=== PATIENT | male | born 1965 | race Caucasian/White ===

== ENCOUNTER 2020-03-19 00:55 | Inpatient (IN) | payer MEDICAID ==
[~2020-03-19] VITALS: Ht 175.3 cm; Wt 59.0 kg
[2020-03-19] MEDS ORDERED: heparin 25,000 UNIT/250ml bag 250 ML IV SCH (01:21)
[2020-03-19] MEDS ORDERED: heparin 10,000 units/1 ML INJ IV PRN (01:25)
[2020-03-19] MEDS ORDERED: aspirin 81mg tab.chew PO ONE (01:25)
[2020-03-19] MEDS ORDERED: heparin 10,000 units/1 ML INJ IV ONE ×3 (01:25→01:35)
[2020-03-19 01:51] LABS: BASOPHILS % (AUTO) 0.5 % (0-1); EOSINOPHILS # (AUTO) 0.4 X10'3 (0-0.9); EOSINOPHILS % (AUTO) 6.7 % (0-6); LYMPHOCYTES # (AUTO) 1.9 X10'3 (1.1-4.8); LYMPHOCYTES % (AUTO) 30.7 % (21-51); MEAN CORPUSCULAR HEMOGLOBIN 28.9 PG (27.0-31.0); MEAN CORPUSCULAR HGB CONC 33.4 g/dL (33.0-36.5); MEAN CORPUSCULAR VOLUME 86.5 FL (78-98); MONOCYTES # (AUTO) 0.6 X10'3 (0-0.9); MONOCYTES % (AUTO) 9.7 % (2-12); NEUTROPHILS # (AUTO) 3.3 X10'3 (1.8-7.7); NEUTROPHILS % (AUTO) 52.4 % (42-75); PLATELET COUNT 205 X10'3 (140-440); RED BLOOD COUNT 4.51 X10'6 (4.70-6.10); RED CELL DISTRIBUTION WIDTH 17.4 % (11.5-14.5); WHITE BLOOD COUNT 6.3 X10'3 (4.5-11.0)
[2020-03-19 02:02] LABS: PARTIAL THROMBOPLASTIN TIME 30 SECONDS (22-32)
[2020-03-19 02:04] LABS: ALANINE AMINOTRANSFERASE 27 U/L (12-78); ALBUMIN 4.1 G/DL (3.4-5.0); ALBUMIN/GLOBULIN RATIO 1.2 (1.1-1.5); ALKALINE PHOSPHATASE 111 IU/L (46-116); ANION GAP 6 (8-16); ASPARTATE AMINO TRANSFERASE 36 U/L (10-37); BILIRUBIN,TOTAL 0.4 MG/DL (0.1-1.0); BLOOD UREA NITROGEN 7 MG/DL (7-18); CALCIUM 9.2 MG/DL (8.5-10.1); CHLORIDE 99 MMOL/L (99-107); GLUCOSE 99 MG/DL (70-104); POTASSIUM 3.9 MMOL/L (3.5-5.1); SODIUM 133 MMOL/L (135-145); TOTAL CARBON DIOXIDE 28.2 MMOL/L (24-32); TOTAL PROTEIN 7.5 G/DL (6.4-8.2); eGFR > 90 ML/MIN
[2020-03-19 02:04] LABS: URINE AMPHETAMINE SCREEN NEGATIVE (Neg); URINE BARBITUATE SCREEN NEGATIVE (Neg); URINE BENZODIAZEPINES SCREEN NEGATIVE (Neg); URINE CANNABINOID SCREEN POSITIVE (Neg); URINE COCAINE SCREEN NEGATIVE (Neg); URINE METHADONE SCREEN NEGATIVE (Neg); URINE OPIATE SCREEN POSITIVE (Neg); URINE PHENCYCLIDINE SCREEN NEGATIVE (Neg)
[2020-03-19 02:11] LABS: MAGNESIUM 2.3 MG/DL (1.5-2.4)
[2020-03-19] MEDS: heparin 25,000 UNIT/250ml bag 250 ML IV SCH ×2 (02:17→19:49)
[2020-03-19] MEDS ORDERED: BUPR1FIL3 SL (02:32)
[2020-03-19] MEDS ORDERED: BENZ2TAB PO (02:32)
[2020-03-19] MEDS ORDERED: GABA600T PO (02:32)
[2020-03-19] MEDS ORDERED: LORA2TAB96 PO (02:32)
[2020-03-19] MEDS ORDERED: FLO0.4C PO (02:32)
[2020-03-19] MEDS ORDERED: CYCL-394 PO (02:32)
[2020-03-19] MEDS ORDERED: ALBU8.5H8 INH (02:32)
[2020-03-19] MEDS ORDERED: IBUP-1986 PO (02:32)
[2020-03-19] MEDS ORDERED: BECL7.3A INH (02:32)
[2020-03-19] MEDS ORDERED: OLAN5TAB3 PO (02:32)
[2020-03-19] MEDS ORDERED: TEMA15CA5 PO (02:32)
[2020-03-19] MEDS ORDERED: ZIPR80CA2 PO (02:32)
[2020-03-19] MEDS ORDERED: normal saline 1000ml 1,000 ML IV SCH (02:44)
[2020-03-19] MEDS ORDERED: mag hydrox/Alum hydrox/simeth 30ml oral suspension PO PRN (02:45)
[2020-03-19] MEDS ORDERED: temazepam 15mg capsule PO PRN (02:45)
[2020-03-19] MEDS ORDERED: acetaminophen 325mg tablet PO PRN (02:45)
[2020-03-19] MEDS ORDERED: cyclobenzaprine 10mg tablet PO PRN (02:45)
[2020-03-19] MEDS ORDERED: ondansetron/PF 4mg/2ml inj IV PRN (02:45)
[2020-03-19] MEDS ORDERED: LORazepam 1 MG tablet PO PRN (02:45)
[2020-03-19] MEDS ORDERED: ALBUTEROL INHALER 1 PUFF/90 MCG INHALER IH PRN (02:45)
[2020-03-19] MEDS ORDERED: magnesium hydroxide 30ml (MOM) UD suspension PO PRN (02:45)
[2020-03-19] MEDS ORDERED: metoprolol tartrate 1mg/ml inj IV ONE (02:50)
[2020-03-19 04:30] VITALS: BP 123/92
[2020-03-19 06:00] VITALS: BP 137/92
--- NOTE | 2020-03-19 06:15 | NUR ---
Problems reprioritized. Patient report given, questions answered & plan of care reviewed with ASIF Merrill. Patient stable at shift change
--- NOTE | 2020-03-19 06:15 | NUR ---
Patient in room PCU 3018. I have received report from ASIF Huffman and had the opportunity to ask questions and assume patient care. Patient currently resting in bed, bed locked and low, call light in reach, no acute distress, will continue to monitor.
--- NOTE | 2020-03-19 07:26 | NUR ---
PAGER ID: [phone] MESSAGE: ASIF Merrill, ext [phone], [id number], patient states he does not want to take his suboxone, says he needs something stronger for his pain (multiple back surgeries)
[2020-03-19] MEDS: tamsulosin 0.4mg capsule PO SCH (07:34)
[2020-03-19] MEDS: metoprolol tartrate 50mg tablet PO SCH ×2 (07:34→20:00)
[2020-03-19] MEDS: OLANZAPINE 5 MG TABLET PO SCH ×3 (07:34→20:51)
[2020-03-19] MEDS: benztropine 1mg tablet PO SCH (07:35)
[2020-03-19] MEDS: gabapentin 400mg capsule PO SCH ×2 (07:35→15:28)
[2020-03-19] MEDS: budesonide 0.5mg/2ml UD nebule IH SCH ×3 (08:00→22:37)
[2020-03-19] MEDS ORDERED: buprenorphine/naloxone 8MG-2MG SUBlingual film SL SCH (08:00)
[2020-03-19 08:09] LABS: CHOL/HDL RATIO 2.2 (0.00-4.99); CHOLESTEROL 154 MG/DL (0-200); HDL CHOLESTEROL 71 MG/DL (35-60); LDL CHOLESTEROL 74 MG/DL (50-100); TRIGLYCERIDES 43 MG/DL (20-135)
--- NOTE | 2020-03-19 08:25 | NUR ---
Seen patient in room chewing his iv and he states he wants to leave AMA and requesting for me to call for his ride, informed primary nurse, charge nurse and paged Dr. Hernandez, will continue to monitor. PAGER ID: [phone] MESSAGE: [phone] Obey Davis: KATHYSachin Patient is stating he will be leaving AMA, patient has chewed threw his IV lines for heparin gtts and IV fluids. Thanks Cirilo [phone]
--- NOTE | 2020-03-19 09:00 | NUR ---
Nurse informed patient chewed through his IV tubing and does not want his heparin at this time. held in IV spreadsheet.
[2020-03-19 11:00] VITALS: BP 121/92
[2020-03-19] MEDS: LORazepam 1 MG tablet PO PRN ×3 (11:03→19:36)
[2020-03-19] MEDS: buPROPion SR 150mg tablet PO SCH ×2 (11:03→19:37)
[2020-03-19] MEDS: buprenorphine/naloxone 8MG-2MG SUBlingual film SL SCH ×2 (11:08→20:46)
--- NOTE | 2020-03-19 12:00 | NUR ---
patient acquiesced to restarting heparin drip, restarted at original rate as it had been off for a few hours. Will draw cardiac PTT at 1800.
--- NOTE | 2020-03-19 14:04 | NUR ---
Patient states he does not feel he is getting adequate care here, states he needs a "pass" to go to the bank and get $1200, when asked why he needs $1200 he says he needs to pay his creditors. Patient believes he is in [place] and has to frequently be re-oriented to place. Patient keeps having panic attacks about his belongings because he insists that he had them with him. We re-orient him to the fact that they are at [facility] in [place] and he calms down but then he will become agitated again and start looking for his belongings again.
--- NOTE | 2020-03-19 15:55 | NUR ---
PATIENT REFUSED 1500 VITALS
[2020-03-19] MEDS ORDERED: ziprasidone IM 20mg inj **IM only IM PRN (16:30)
[2020-03-19] MEDS ORDERED: metoprolol tartrate 1mg/ml inj IV PRN (17:55)
[2020-03-19] MEDS ORDERED: aminophylline 250mg/10ml inj. IV PRN (17:55)
[2020-03-19] MEDS ORDERED: regadenoson 0.4mg/5ml syringe IV ONE (17:55)
[2020-03-19] MEDS ORDERED: nitroGLYCERIN 0.4mg SUBLingual tab SL PRN (17:55)
--- NOTE | 2020-03-19 18:12 | NUR ---
Problems reprioritized. Patient report given, questions answered & plan of care reviewed with ASIF Snow.
--- NOTE | 2020-03-19 18:30 | NUR ---
Patient in room PCU 3018. I have received report from Desirae GOLD and had the opportunity to ask questions and assume patient care. Pt refused vital signs, provided education. Pt disinterested in medical care. Stating "I want to have a heart attack. I don't care" Addendum: 03/20/20 at 0340 by Simeon Mitchell RN Pt refusing telemetry monitoring
[2020-03-19] MEDS: heparin 10,000 units/1 ML INJ IV PRN (19:46)
[2020-03-19] MEDS ORDERED: ziprasidone 20mg capsule PO SCH (21:00)
--- NOTE | 2020-03-19 23:52 | NUR ---
Pt continued to refuse 2200 to 2300 Vital signs - Will continue to monitor.
[2020-03-20] MEDS: gabapentin 400mg capsule PO SCH ×2 (02:04→08:07)
[2020-03-20] MEDS: LORazepam 1 MG tablet PO PRN ×3 (02:04→10:50)
[2020-03-20 02:19] LABS: BASOPHILS # (AUTO) 0.1 X10'3 (0-0.2); BASOPHILS % (AUTO) 0.9 % (0-1); EOSINOPHILS # (AUTO) 0.6 X10'3 (0-0.9); EOSINOPHILS % (AUTO) 8.7 % (0-6); HEMATOCRIT 39.4 % (42.0-52.0); LYMPHOCYTES # (AUTO) 2.5 X10'3 (1.1-4.8); LYMPHOCYTES % (AUTO) 38.4 % (21-51); MEAN CORPUSCULAR HEMOGLOBIN 28.7 PG (27.0-31.0); MEAN CORPUSCULAR HGB CONC 32.9 g/dL (33.0-36.5); MEAN PLATELET VOLUME 7.1 FL (7.4-10.4); MONOCYTES # (AUTO) 0.6 X10'3 (0-0.9); NEUTROPHILS # (AUTO) 2.7 X10'3 (1.8-7.7); PLATELET COUNT 229 X10'3 (140-440); RED BLOOD COUNT 4.53 X10'6 (4.70-6.10); RED CELL DISTRIBUTION WIDTH 17.8 % (11.5-14.5); WHITE BLOOD COUNT 6.4 X10'3 (4.5-11.0)
--- NOTE | 2020-03-20 02:20 | NUR ---
Pt pacing around halls asking for his stuff and cigarettes, frequently reorientating that patient belongings are at [facility]. Pt stating he will refuse lexiscan in AM. Educating patient on consequences. Will continue to monitor and reorientate. Addendum: 03/20/20 at 0339 by Simeon Mitchell RN Pt refusing vital signs and telemetry at this time Addendum: 03/20/20 at 0341 by Simeon Mitchell RN Pt states "I would rather not know if I am going to have a heart attack. I don't need this test. I want to have a heart attack. I want it to be a surprise."
[2020-03-20 02:23] LABS: ALBUMIN 3.7 G/DL (3.4-5.0); ALBUMIN/GLOBULIN RATIO 1.1 (1.1-1.5); ALKALINE PHOSPHATASE 104 IU/L (46-116); ANION GAP 8 (8-16); ASPARTATE AMINO TRANSFERASE 28 U/L (10-37); BILIRUBIN,TOTAL 0.2 MG/DL (0.1-1.0); BLOOD UREA NITROGEN 17 MG/DL (7-18); BUN/CREATININE RATIO 18.1 (5.4-32.0); CALCIUM 8.9 MG/DL (8.5-10.1); CHLORIDE 104 MMOL/L (99-107); CREATININE 0.94 MG/DL (0.60-1.10); GLUCOSE 96 MG/DL (70-104); POTASSIUM 4.6 MMOL/L (3.5-5.1); SODIUM 140 MMOL/L (135-145); TOTAL CARBON DIOXIDE 27.9 MMOL/L (24-32); TOTAL PROTEIN 7.1 G/DL (6.4-8.2); eGFR 83 ML/MIN
[2020-03-20 02:44] LABS: ALANINE AMINOTRANSFERASE < 6 U/L (12-78)
[2020-03-20] MEDS: heparin 10,000 units/1 ML INJ IV PRN (03:29)
[2020-03-20] MEDS: heparin 25,000 UNIT/250ml bag 250 ML IV SCH (03:35)
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
--- NOTE | 2020-03-20 06:30 | NUR ---
Pt self d/c'd both IV's and refusing to receive another IV.
--- NOTE | 2020-03-20 06:40 | NUR ---
Patient in room PCU 3018. I have received report from Edy and had the opportunity to ask questions and assume patient care.
--- NOTE | 2020-03-20 07:03 | NUR ---
Problems reprioritized. Patient report given, questions answered & plan of care reviewed with Rosy GOLD
--- NOTE | 2020-03-20 07:15 | NUR ---
PAGER ID: [phone] MESSAGE: Good morning, Mr. Flood in [id number], refused mirella scan, pulled iV lines out, asking for meds. Can we give him his morning meds? and a reg diet? Rosy on U #[id number]
[2020-03-20] MEDS: OLANZAPINE 5 MG TABLET PO SCH (08:00)
[2020-03-20] MEDS ORDERED: atorvastatin 10mg tablet PO SCH (08:00)
[2020-03-20] MEDS: metoprolol tartrate 50mg tablet PO SCH (08:00)
[2020-03-20] MEDS: benztropine 1mg tablet PO SCH (08:06)
[2020-03-20] MEDS: tamsulosin 0.4mg capsule PO SCH (08:07)
[2020-03-20] MEDS: buPROPion SR 150mg tablet PO SCH (08:07)
[2020-03-20] MEDS: buprenorphine/naloxone 8MG-2MG SUBlingual film SL SCH ×2 (08:09→13:19)
[2020-03-20] MEDS: budesonide 0.5mg/2ml UD nebule IH SCH (08:26)
[2020-03-20] MEDS ORDERED: aspirin 81mg tab.chew PO SCH (08:30)
--- NOTE | 2020-03-20 09:11 | NUR ---
Pt had called [facility] to schedule a vegetable picker time of 12:30 to take him to [place]. Pt had made an appt for vegetable picker in [place] at 14:00 and then another for transport to [place], per [facility] transport rep Regine. Pt's increasing aggressiveness, anxiety and noncompliance initiated a call to security, [employer] and [facility]. Transport was cancelled. Pt was furious. [facility] was supposed to eval pt. They did not arrive until after pt had been escorted by D to the ED.
--- NOTE | 2020-03-20 13:04 | NUR ---
PAGER ID: [phone] MESSAGE: Rosy Koenig on PCU, Mr. Davis in 3018 is requesting something for anxiety, 1 mg Ativan already given at 10:50, anything else I can give him?
[2020-03-20] MEDS ORDERED: diazepam 5mg tablet PO ONE (13:15)
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
--- NOTE | 2020-03-20 13:31 | NUR ---
PAGER ID: [phone] MESSAGE: Arya - follow up on Mr. Davis in 3017, he was placed on a 5150 and taken to the ED Rosy on PCU
[2020-03-20] MEDS ORDERED: ATOR10TA PO (13:45)
[2020-03-20] MEDS ORDERED: METO50TA16 PO (13:45)
[2020-03-20] MEDS ORDERED: ASPI-1265 PO (13:45)
[2020-03-21] MEDS ORDERED: TEMA15CA5 PO (17:41)
[2020-03-21] MEDS ORDERED: ALBU8.5H8 INH (17:41)
[2020-03-21] MEDS ORDERED: CYCL-394 PO (17:41)
[2020-03-21] MEDS ORDERED: METO-395 PO (17:41)
[2020-03-21] MEDS ORDERED: ZIPR80CA2 PO (17:41)
[2020-03-21] MEDS ORDERED: ATOR10TA PO (17:41)
[2020-03-21] MEDS ORDERED: BUPR1FIL3 SL (17:41)
[2020-03-21] MEDS ORDERED: ASPI-1265 PO (17:41)
[2020-03-21] MEDS ORDERED: OLAN5TAB3 PO (17:41)
[2020-03-21] MEDS ORDERED: GABA600T PO (17:41)
[2020-03-21] MEDS ORDERED: CLOP75TA35 PO (17:41)
[2020-03-21] MEDS ORDERED: BECL7.3A INH (17:41)
[2020-03-21] MEDS ORDERED: BENZ2TAB PO (17:41)
[2020-03-21] MEDS ORDERED: LORA2TAB96 PO (17:41)
[2020-03-21] MEDS ORDERED: FLO0.4C PO (17:41)
[2020-03-21] MEDS ORDERED: NITR0.4T51 SL (17:41)
== END 2020-03-20 14:14 | DRG 190 ==
LOC: EDBD 00:56 → ER 00:56 → PCU 3S 02:44 → UNDOADMIN 03:53 → CMPBEDREQ 06:01 → UNDODISIN 03-20 14:14
PROVIDERS: ADMIT Internal Medicine; ATTEND Family Medicine
DX: I21.4 Non-ST elevation (NSTEMI) myocardial infarction (principal); J43.9 Emphysema, unspecified; R45.851 Suicidal ideations; F17.200 Nicotine dependence, unspecified, uncomplicated; F31.9 Bipolar disorder, unspecified; F60.9 Personality disorder, unspecified; G89.29 Other chronic pain; F43.10 Post-traumatic stress disorder, unspecified; F12.90 Cannabis use, unspecified, uncomplicated; M19.90 Unspecified osteoarthritis, unspecified site; F29 Unspecified psychosis not due to a substance or known physiological condition; M54.9 Dorsalgia, unspecified; N40.0 Benign prostatic hyperplasia without lower urinary tract symptoms; Z53.29 Procedure and treatment not carried out because of patient's decision for other reasons; Z63.9 Problem related to primary support group, unspecified; Z79.51 Long term (current) use of inhaled steroids; Z79.82 Long term (current) use of aspirin; I25.2 Old myocardial infarction; Z79.899 Other long term (current) drug therapy; Z82.49 Family history of ischemic heart disease and other diseases of the circulatory system; Z72.89 Other problems related to lifestyle
CPT/HCPCS: 36415; 71045; 80053; 80061; 80305; 83735; 83880; 84484; 85025; 85610; 85730; 87081; 93005; 93306; 94640; 94760; 96365; 99285; G0378; J1644; J3486; J7626

== ENCOUNTER 2020-03-20 13:42 | Inpatient (IN) | payer MEDICAID ==
[~2020-03-20] VITALS: Ht 175.3 cm; Wt 63.6 kg
[~2020-03-20 13:42] MED LIST: ALBU8.5H8 INH; BECL7.3A INH; BENZ2TAB PO; BUPR1FIL3 SL; CYCL-394 PO; FLO0.4C PO; GABA600T PO; IBUP-1986 PO; LORA2TAB96 PO; OLAN5TAB3 PO; TEMA15CA5 PO; ZIPR80CA2 PO
[2020-03-20] MEDS ORDERED: ATOR10TA PO (13:45)
[2020-03-20] MEDS ORDERED: METO50TA16 PO (13:45)
[2020-03-20] MEDS ORDERED: ASPI-1265 PO (13:45)
--- NOTE | 2020-03-20 14:10 | NUR ---
Pt is making comments about being the machete man and stated "I need a do not revive band." explained to the patient that the DNR decision needs to be made between himself and provider.
[2020-03-20] MEDS ORDERED: OLANZapine 5mg rapidly disint. tablet PO ONE (14:40)
[2020-03-20] MEDS ORDERED: aspirin 81mg tab.chew PO ONE (14:40)
--- NOTE | 2020-03-20 14:57 | NUR ---
Pt stated "If you guys keep me in intermediate, I promise, I will find a way to kill myself."
--- NOTE | 2020-03-20 15:06 | NUR ---
CALL FROM ANDREW JIMENEZ STATING THEY HAVE PTS SUBOXONE AND WILL BRING IN TO THE HOSPITAL
[2020-03-20 15:14] LABS: BASOPHILS % (AUTO) 0.9 % (0-1); EOSINOPHILS # (AUTO) 0.5 X10'3 (0-0.9); EOSINOPHILS % (AUTO) 9.6 % (0-6); HEMATOCRIT 35.3 % (42.0-52.0); HEMOGLOBIN 11.7 g/dl (14.0-17.9); LYMPHOCYTES # (AUTO) 1.4 X10'3 (1.1-4.8); LYMPHOCYTES % (AUTO) 27.9 % (21-51); MEAN CORPUSCULAR HEMOGLOBIN 28.5 PG (27.0-31.0); MEAN CORPUSCULAR HGB CONC 33.1 g/dL (33.0-36.5); MEAN CORPUSCULAR VOLUME 86.2 FL (78-98); MEAN PLATELET VOLUME 6.8 FL (7.4-10.4); MONOCYTES # (AUTO) 0.5 X10'3 (0-0.9); MONOCYTES % (AUTO) 10.6 % (2-12); NEUTROPHILS # (AUTO) 2.6 X10'3 (1.8-7.7); PLATELET COUNT 226 X10'3 (140-440); RED BLOOD COUNT 4.09 X10'6 (4.70-6.10); RED CELL DISTRIBUTION WIDTH 18.1 % (11.5-14.5); WHITE BLOOD COUNT 5.1 X10'3 (4.5-11.0)
--- NOTE | 2020-03-20 15:25 | NUR ---
Pt is calm and cooperative at this time. Pt has stable vitals, NSR on tele monitor. Sitter at bedside.
[2020-03-20 15:29] LABS: ALBUMIN 3.5 G/DL (3.4-5.0); ANION GAP 7 (8-16); BLOOD UREA NITROGEN 17 MG/DL (7-18); BUN/CREATININE RATIO 19.8 (5.4-32.0); CALCIUM 8.4 MG/DL (8.5-10.1); CHLORIDE 105 MMOL/L (99-107); CREATININE 0.86 MG/DL (0.60-1.10); GLUCOSE 86 MG/DL (70-104); POTASSIUM 4.4 MMOL/L (3.5-5.1); SODIUM 139 MMOL/L (135-145); TROPONIN I 0.11 NG/ML (0.0-0.05); eGFR > 90 ML/MIN
[2020-03-20] MEDS ORDERED: heparin 10,000 units/1 ML INJ IV ONE ×2 (16:10→18:25)
[2020-03-20] MEDS ORDERED: nitroGLYCERIN 0.4mg SUBLingual tab SL PRN ×3 (16:10→18:25)
--- NOTE | 2020-03-20 16:20 | NUR ---
Pt is awaiting disposition. Pt is calm and NSR on tele monitor.
--- NOTE | 2020-03-20 17:23 | NUR ---
Continuing to monitor, vitals stable, awaiting admission bed assignment.
[2020-03-20] MEDS: heparin 25,000 UNIT/250ml bag 250 ML IV SCH (17:31)
[2020-03-20 17:48] LABS: PARTIAL THROMBOPLASTIN TIME 28 SECONDS (22-32)
--- NOTE | 2020-03-20 18:21 | NUR ---
No change in condition, awaiting admission orders.
[2020-03-20] MEDS ORDERED: heparin 25,000 UNIT/250ml bag 250 ML IV SCH (18:23)
[2020-03-20] MEDS ORDERED: magnesium hydroxide 30ml (MOM) UD suspension PO PRN (18:25)
[2020-03-20] MEDS ORDERED: morphine 2 MG/ML inj. syringe IV PRN ×2 (18:25)
[2020-03-20] MEDS ORDERED: potassium Cl 20 mEq SR tablet PO PRN ×2 (18:25)
[2020-03-20] MEDS ORDERED: magnesium Cl slow-release 64mg tablet PO PRN (18:25)
[2020-03-20] MEDS ORDERED: LORazepam 2 mg/ml vial IV PRN (18:25)
[2020-03-20] MEDS ORDERED: aminophylline 250mg/10ml inj. IV PRN (18:25)
[2020-03-20] MEDS ORDERED: metoprolol tartrate 1mg/ml inj IV PRN (18:25)
[2020-03-20] MEDS ORDERED: acetaminophen 325mg tablet PO PRN ×2 (18:25)
[2020-03-20] MEDS ORDERED: heparin 10,000 units/1 ML INJ IV PRN (18:25)
[2020-03-20] MEDS ORDERED: mag hydrox/Alum hydrox/simeth 30ml oral suspension PO PRN (18:25)
[2020-03-20] MEDS ORDERED: regadenoson 0.4mg/5ml syringe IV PRN (18:25)
[2020-03-20] MEDS ORDERED: magnesium 2GM in 50ml NS 50 ML IV PRN (18:25)
[2020-03-20] MEDS ORDERED: magnesium 4gm in 100ml NS 100 ML IV PRN (18:25)
[2020-03-20] MEDS ORDERED: ondansetron/PF 4mg/2ml inj IV PRN (18:25)
[2020-03-20] MEDS ORDERED: potassium CL 10mEq/100ml bag 100 ML IV PRN ×2 (18:25)
[2020-03-20] MEDS ORDERED: metoclopramide 5 mg/ml inj IV PRN (18:25)
--- NOTE | 2020-03-20 18:44 | NUR ---
Dr. Merlos is with the patient at this time. Pt is awaiting admission bed assignment.
[2020-03-20] MEDS ORDERED: temazepam 15mg capsule PO PRN ×2 (18:45→21:00)
[2020-03-20] MEDS ORDERED: cyclobenzaprine 10mg tablet PO PRN (18:45)
[2020-03-20] MEDS: normal saline 1000ml 1,000 ML IV SCH (18:58)
--- NOTE | 2020-03-20 19:20 | NUR ---
Pt has no change in condition. Sitter at bedside.
[2020-03-20 19:27] LABS: BASOPHILS % (AUTO) 0.9 % (0-1); EOSINOPHILS # (AUTO) 0.5 X10'3 (0-0.9); EOSINOPHILS % (AUTO) 9.8 % (0-6); HEMATOCRIT 36.7 % (42.0-52.0); LYMPHOCYTES % (AUTO) 38.5 % (21-51); MEAN CORPUSCULAR HEMOGLOBIN 28.3 PG (27.0-31.0); MEAN CORPUSCULAR HGB CONC 32.7 g/dL (33.0-36.5); MEAN CORPUSCULAR VOLUME 86.3 FL (78-98); MEAN PLATELET VOLUME 6.9 FL (7.4-10.4); MONOCYTES # (AUTO) 0.6 X10'3 (0-0.9); MONOCYTES % (AUTO) 12.3 % (2-12); NEUTROPHILS % (AUTO) 38.5 % (42-75); PLATELET COUNT 217 X10'3 (140-440); RED BLOOD COUNT 4.25 X10'6 (4.70-6.10); RED CELL DISTRIBUTION WIDTH 18.1 % (11.5-14.5); WHITE BLOOD COUNT 5.2 X10'3 (4.5-11.0)
[2020-03-20] MEDS: budesonide 0.5mg/2ml UD nebule IH SCH (19:54)
--- NOTE | 2020-03-20 19:54 | NUR ---
PT REFUSED BREATHING TREATMENT AND THEN HE TOLD SHELL MACHINE OPERATOR THAT IF HE DIDN'T GET HIS ATIVAN HE WAS GOING TO "TEAR THIS PLACE UP" - PT THEN CHANGED HIS MIND AND SAID HE WANTED HIS BREATHING TREATMENT. MD IS AWARE AND AN ORDER HAS BEEN PLACED FOR ATIVAN. PT IS ALSO MAKING STATEMENTS THAT "IT'S ALL GOING TO GO SOUTH HERE SOON"
[2020-03-20] MEDS ORDERED: LORazepam 2 mg/ml vial IV ONE (19:55)
[2020-03-20] MEDS: metoprolol tartrate 25mg tablet PO SCH (20:00)
--- NOTE | 2020-03-20 20:00 | NUR ---
RED'D CALL FROM DAVID AT [facility] - SHE WOULD LIKE TO BE NOTIFIED WHEN PT EITHER GOES TO THE FLOOR OR BECOMES MEDICALLY CLEARED (WHICHEVER COMES FIRST) SHE CAN BE REACHED AT [phone] - LEAVE MSG IS NO ONE ANSWERS.
[2020-03-20] MEDS: K and/or MAG REPLACEMENT MC SCH (20:07)
--- NOTE | 2020-03-20 20:30 | NUR ---
Pt's sister Ana called and patient gave verbal permission for staff to talk with her about his status. Ana said he does not deal well with benzodiazepines. Ana's phone number is [phone].
[2020-03-20] MEDS ORDERED: ziprasidone 20mg capsule PO SCH (21:00)
[2020-03-20] MEDS: buprenorphine/naloxone 8MG-2MG SUBlingual film SL SCH (21:02)
--- NOTE | 2020-03-20 21:38 | NUR ---
Pt informed the sitter at the bedside that he no longer wants any information shared with his family members when they call, despite the fact that he gave verbal permission to discuss his status with his sister Ana.
--- NOTE | 2020-03-20 22:05 | NUR ---
Asked registration to cecelia the patient's chart as confidential due to his request not to reveal any info to his family.
--- NOTE | 2020-03-20 22:29 | NUR ---
Report to ASIF Lopez. Pt is awaiting admission bed assignment. Pt's PTT and repeat troponin levels are to be collected at 2300.
--- NOTE | 2020-03-20 23:25 | NUR ---
received pt report from [facility]EARCH [facility]RAR[facility], had opportunity to ask questions. awaiting arrival to unit.
[2020-03-20 23:30] VITALS: BP 135/55
[2020-03-20 23:53] LABS: PARTIAL THROMBOPLASTIN TIME 31 SECONDS (22-32)
[2020-03-21] VITALS (10 sets, daily range): BP systolic 102–142; BP diastolic 51–79
[2020-03-21] MEDS: OLANZAPINE 5 MG TABLET PO SCH ×3 (00:20→16:08)
[2020-03-21] MEDS: LORazepam 1 MG tablet PO PRN ×4 (00:21→16:09)
[2020-03-21] MEDS: gabapentin 400mg capsule PO SCH ×3 (00:21→16:08)
[2020-03-21] MEDS: heparin 10,000 units/1 ML INJ IV PRN ×2 (00:30→08:53)
[2020-03-21] MEDS: heparin 25,000 UNIT/250ml bag 250 ML IV SCH ×2 (00:32→12:21)
--- NOTE | 2020-03-21 00:54 | NUR ---
CONTACTED THE [facility] OFFICE AND LEFT ESSAGE THAT PT WAS SENT TO THE FLOOR.
--- NOTE | 2020-03-21 01:48 | NUR ---
PT REFUSED BLOOD DRAW pt refused 011 blood draw for trop and blood work. will try again later when pt is more agreeable.
--- NOTE | 2020-03-21 05:22 | NUR ---
pt removed tele box and refuses to allow us to place it back on. will try again later.
--- NOTE | 2020-03-21 06:00 | NUR ---
Patient refused AM Vital signs
--- NOTE | 2020-03-21 06:36 | NUR ---
Problems reprioritized. Patient report given, questions answered & plan of care reviewed with Xavi GOLD.
--- NOTE | 2020-03-21 06:39 | NUR ---
Patient in room PCU 3018. I have received report from Savage RN and had the opportunity to ask questions and assume patient care.
--- NOTE | 2020-03-21 07:00 | NUR ---
Patient refuses dart admission and 2 rn skin check
[2020-03-21] MEDS: buprenorphine/naloxone 8MG-2MG SUBlingual film SL SCH ×2 (07:07→13:05)
[2020-03-21] MEDS: metoprolol tartrate 25mg tablet PO SCH (07:08)
[2020-03-21] MEDS: budesonide 0.5mg/2ml UD nebule IH SCH (07:41)
[2020-03-21] MEDS ORDERED: benztropine 1mg tablet PO SCH (08:00)
[2020-03-21] MEDS ORDERED: tamsulosin 0.4mg capsule PO SCH (08:00)
[2020-03-21] MEDS ORDERED: atorvastatin 10mg tablet PO SCH (08:00)
[2020-03-21] MEDS ORDERED: OLANZapine 2.5MG tablet PO SCH (08:00)
[2020-03-21] MEDS: K and/or MAG REPLACEMENT MC SCH (08:00)
[2020-03-21 08:12] LABS: BASOPHILS # (AUTO) 0.1 X10'3 (0-0.2); BASOPHILS % (AUTO) 1.2 % (0-1); EOSINOPHILS # (AUTO) 0.6 X10'3 (0-0.9); EOSINOPHILS % (AUTO) 9.3 % (0-6); HEMATOCRIT 39.4 % (42.0-52.0); HEMOGLOBIN 12.9 g/dl (14.0-17.9); LYMPHOCYTES # (AUTO) 2.1 X10'3 (1.1-4.8); LYMPHOCYTES % (AUTO) 34.8 % (21-51); MEAN CORPUSCULAR HEMOGLOBIN 28.5 PG (27.0-31.0); MEAN CORPUSCULAR HGB CONC 32.8 g/dL (33.0-36.5); MEAN CORPUSCULAR VOLUME 86.8 FL (78-98); MEAN PLATELET VOLUME 7.1 FL (7.4-10.4); MONOCYTES # (AUTO) 0.6 X10'3 (0-0.9); MONOCYTES % (AUTO) 9.6 % (2-12); NEUTROPHILS # (AUTO) 2.7 X10'3 (1.8-7.7); NEUTROPHILS % (AUTO) 45.1 % (42-75); PLATELET COUNT 217 X10'3 (140-440); RED BLOOD COUNT 4.54 X10'6 (4.70-6.10); RED CELL DISTRIBUTION WIDTH 18.1 % (11.5-14.5)
[2020-03-21] MEDS ORDERED: buPROPion SR 150mg tablet PO SCH (08:15)
--- NOTE | 2020-03-21 08:17 | NUR ---
received orders from dr. juares fpr ativan prn 2mg q4h prn and wellbutrin 150mg bid
[2020-03-21] MEDS ORDERED: aspirin 325mg tablet PO SCH (08:30)
[2020-03-21] MEDS: normal saline 1000ml 1,000 ML IV SCH (08:37)
[2020-03-21 08:42] LABS: ALANINE AMINOTRANSFERASE 25 U/L (12-78); ALBUMIN 3.8 G/DL (3.4-5.0); ALBUMIN/GLOBULIN RATIO 1.1 (1.1-1.5); ALKALINE PHOSPHATASE 102 IU/L (46-116); ANION GAP 8 (8-16); ASPARTATE AMINO TRANSFERASE 35 U/L (10-37); BILIRUBIN,TOTAL 0.2 MG/DL (0.1-1.0); BLOOD UREA NITROGEN 19 MG/DL (7-18); BUN/CREATININE RATIO 23.5 (5.4-32.0); CHLORIDE 106 MMOL/L (99-107); CREATININE 0.81 MG/DL (0.60-1.10); GLUCOSE 83 MG/DL (70-104); POTASSIUM 4.2 MMOL/L (3.5-5.1); SODIUM 139 MMOL/L (135-145); TOTAL CARBON DIOXIDE 25.4 MMOL/L (24-32); TOTAL PROTEIN 7.2 G/DL (6.4-8.2); eGFR > 90 ML/MIN
[2020-03-21 08:45] LABS: MAGNESIUM 2.2 MG/DL (1.5-2.4)
[2020-03-21] MEDS ORDERED: clopidogrel 300mg tablet PO ONE (12:40)
[2020-03-21] MEDS ORDERED: nitroGLYCERIN 0.4mg SUBLingual tab SL PRN (12:40)
--- NOTE | 2020-03-21 12:47 | NUR ---
PAGER ID: [phone] MESSAGE: [phone] Obey Davis: Dr. Turk consult w/ pt, gave OK to discharge with medical mgmt of aspirin, plavix, metoprolol succinat. patient is also requesting for valium, states he feels an anxiety attack coming soon. thanks niraj [phone]
[2020-03-21] MEDS ORDERED: LORazepam 1 MG tablet PO ONE (13:00)
--- NOTE | 2020-03-21 14:28 | NUR ---
PAGER ID: [phone] MESSAGE: [id number] Obey Davis: Pt is requesting valium, ativan isn't working right now. thanks niraj [phone]
[2020-03-21] MEDS ORDERED: diazepam 5mg tablet PO ONE (14:30)
--- NOTE | 2020-03-21 14:32 | NUR ---
received order for valium 10mg x1 now per leslie juares
--- NOTE | 2020-03-21 15:37 | NUR ---
[facility] behavioral nurse w/ pt
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
--- NOTE | 2020-03-21 17:23 | NUR ---
PAGER ID: [phone] MESSAGE: [phone] Obey Davis: [employer] is here, asking if patient is ready to be discharged they are planning to book him. thanks Cirilo [phone]
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
[2020-03-21] MEDS ORDERED: BUPR1FIL3 SL (17:41)
[2020-03-21] MEDS ORDERED: BENZ2TAB PO (17:41)
[2020-03-21] MEDS ORDERED: CLOP75TA35 PO (17:41)
[2020-03-21] MEDS ORDERED: GABA600T PO (17:41)
[2020-03-21] MEDS ORDERED: METO-395 PO (17:41)
[2020-03-21] MEDS ORDERED: ALBU8.5H8 INH (17:41)
[2020-03-21] MEDS ORDERED: OLAN5TAB3 PO (17:41)
[2020-03-21] MEDS ORDERED: ZIPR80CA2 PO (17:41)
[2020-03-21] MEDS ORDERED: TEMA15CA5 PO (17:41)
[2020-03-21] MEDS ORDERED: ASPI-1265 PO (17:41)
[2020-03-21] MEDS ORDERED: CYCL-394 PO (17:41)
[2020-03-21] MEDS ORDERED: ATOR10TA PO (17:41)
[2020-03-21] MEDS ORDERED: NITR0.4T51 SL (17:41)
[2020-03-21] MEDS ORDERED: FLO0.4C PO (17:41)
[2020-03-21] MEDS ORDERED: LORA2TAB96 PO (17:41)
[2020-03-21] MEDS ORDERED: BECL7.3A INH (17:41)
[2020-03-22] MEDS ORDERED: clopidogrel 75mg tablet PO SCH (08:00)
[2020-03-22] MEDS ORDERED: metoprolol succinate 25mg (24-HOUR) SR. Tablet PO SCH (08:00)
[2020-03-22] MEDS ORDERED: aspirin 81mg tab.chew PO SCH (08:30)
== END 2020-03-21 17:40 | DRG 190 ==
LOC: ER 13:44 → EEVIPCON 18:23 → ED HOLD 18:23 → PCU 3S 23:34
PROVIDERS: ADMIT Family Medicine; ATTEND Family Medicine
PROC: 4A02XM4 Measurement of Cardiac Total Activity, External Approach (ICD-10-PCS; principal; 2020-03-21)
PROC: 3E073KZ Introduction of Other Diagnostic Substance into Coronary Artery, Percutaneous Approach (ICD-10-PCS; 2020-03-21)
DX: I21.4 Non-ST elevation (NSTEMI) myocardial infarction (principal); J43.9 Emphysema, unspecified; R45.851 Suicidal ideations; F12.90 Cannabis use, unspecified, uncomplicated; F31.9 Bipolar disorder, unspecified; F17.200 Nicotine dependence, unspecified, uncomplicated; G89.29 Other chronic pain; M54.9 Dorsalgia, unspecified; I10 Essential (primary) hypertension; I20.9 Angina pectoris, unspecified; B19.20 Unspecified viral hepatitis C without hepatic coma; Z66 Do not resuscitate; Z79.02 Long term (current) use of antithrombotics/antiplatelets; I25.2 Old myocardial infarction; Z79.51 Long term (current) use of inhaled steroids; Z79.82 Long term (current) use of aspirin; Z79.899 Other long term (current) drug therapy
CPT/HCPCS: 36415; 78452; 80048; 80053; 83735; 84484; 85025; 85610; 85730; 93005; 93017; 94640; 94760; 99285; A9500; G0378; J1644; J2060; J2785; J7030; J7626

== ENCOUNTER 2020-03-22 15:03 | Emergency (ER) | payer MEDICAID ==
[~2020-03-22] VITALS: Ht 177.8 cm; Wt 69.0 kg
[~2020-03-22 15:03] MED LIST changes: +ASPI-1265 PO; +ATOR10TA PO; +CLOP75TA35 PO; -IBUP-1986 PO; +METO-395 PO; +NITR0.4T51 SL
[2020-03-22 15:35] VITALS: BP 144/86
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
[2020-03-22] MEDS ORDERED: ibuprofen 200mg tablet PO ONE (18:05)
--- NOTE | 2020-03-22 19:13 | NUR ---
Pt sister, Merced, has arranged for pt to stay at the [facility] at [address] for one night. Taxi has been called to transport patient
== END 2020-03-22 19:21 | disposition home or self-care (01) ==
LOC: ER 15:03
DX: R07.89 Other chest pain (principal); I25.2 Old myocardial infarction; J43.9 Emphysema, unspecified; F12.90 Cannabis use, unspecified, uncomplicated; F10.10 Alcohol abuse, uncomplicated; Z79.82 Long term (current) use of aspirin; Z79.899 Other long term (current) drug therapy
CPT/HCPCS: 36415; 84484; 93005; 99284